=== PATIENT | male | born 1960 | race Caucasian/White ===

== ENCOUNTER → 2020-07-25 | Outpatient (CLI) | payer OTHER ==
[~2020-07-25] MED LIST: ASPIRIN81 M2 PO; EFFEXOR XR75 MG PO; EFFIENT10 MG PO; LIPITOR20 MG PO; LIPITOR40 MG PO; LIPITOR80 MG PO; NITROSTAT0.4 MG SL; SYNTHROID25 MCG PO; TOPROL XL50 MG PO
== END ==
LOC: CAT 10:39
DX: Z12.2 Encounter for screening for malignant neoplasm of respiratory organs (principal); J98.4 Other disorders of lung; J84.10 Pulmonary fibrosis, unspecified; I25.10 Atherosclerotic heart disease of native coronary artery without angina pectoris; Z95.5 Presence of coronary angioplasty implant and graft; Z87.891 Personal history of nicotine dependence